=== PATIENT | male | born 1995 | race Caucasian/White ===

== ENCOUNTER → 2023-07-18 10:08 | Outpatient (BNVA) | payer OTHER, SELFPAY | PROVIDERS: Visit Provider Physician Assistant | DX: S46.912A Strain of unspecified muscle, fascia and tendon at shoulder and upper arm level, left arm, initial encounter (principal); X50.3XXA Overexertion from repetitive movements, initial encounter | CPT/HCPCS: 73030; 99204 ==

== ENCOUNTER → 2023-07-23 09:10 | Outpatient (BNVA) | payer OTHER, SELFPAY | PROVIDERS: Visit Provider Physician Assistant | DX: S46.912A Strain of unspecified muscle, fascia and tendon at shoulder and upper arm level, left arm, initial encounter (principal); X50.3XXA Overexertion from repetitive movements, initial encounter | CPT/HCPCS: 99214 ==

== ENCOUNTER 2023-07-29 14:04 | Outpatient (REF) | payer OTHER, SELFPAY ==
--- NOTE | ~2023-07-29 | MR_ITS ---
EXAMINATION: MR SHOULDER WITHOUT CONTRAST, LEFT CLINICAL INFORMATION: Limited range of motion. Anterior/superior joint pain. COMPARISON: None available. TECHNIQUE: MRI of the shoulder without contrast was performed on a high-field scanner. FINDINGS: ROTATOR CUFF: Intact. No significant tendinosis Rotator cuff musculature is normal without atrophy or edema signal. BICEPS: Normal. CORACOACROMIAL ARCH: The undersurface of the acromion is curved with no subacromial spur. Minimal acromioclavicular osteoarthritis with small undersurface osteophytes. LABRUM/CAPSULE: Glenoid labrum is intact. No tears. Joint capsule is normal. GLENOHUMERAL JOINT/MARROW: Articular cartilage is well-preserved. No fracture or malalignment. Marrow signal is normal. No joint effusion. MR/MR shoulder LT wo con IMPRESSION: Minimal acromioclavicular osteoarthritis. Otherwise normal MRI of the left shoulder.
== END 2023-07-29 14:05 | disposition home or self-care (01) ==
LOC: HO.MRI 14:04
PROVIDERS: Visit Provider Internal Medicine
DX: S40.912A Unspecified superficial injury of left shoulder, initial encounter (principal)
CPT/HCPCS: 73221

== ENCOUNTER → 2024-07-09 07:58 | Outpatient (BNVA) | payer OTHER, SELFPAY | PROVIDERS: Visit Provider Internal Medicine | DX: S39.012A Strain of muscle, fascia and tendon of lower back, initial encounter (principal); X50.0XXA Overexertion from strenuous movement or load, initial encounter; M79.652 Pain in left thigh; M79.651 Pain in right thigh; R10.32 Left lower quadrant pain; R10.31 Right lower quadrant pain | CPT/HCPCS: 99203 ==

== ENCOUNTER → 2024-07-12 11:16 | Outpatient (BNVA) | payer OTHER, SELFPAY | PROVIDERS: Visit Provider Internal Medicine | DX: S39.012A Strain of muscle, fascia and tendon of lower back, initial encounter (principal); X50.0XXA Overexertion from strenuous movement or load, initial encounter; M79.652 Pain in left thigh | CPT/HCPCS: 99213 ==

== ENCOUNTER → 2024-07-19 08:12 | Outpatient (BNVA) | payer OTHER, SELFPAY | PROVIDERS: Visit Provider Internal Medicine | DX: S39.012D Strain of muscle, fascia and tendon of lower back, subsequent encounter (principal); X50.0XXD Overexertion from strenuous movement or load, subsequent encounter | CPT/HCPCS: 99213 ==